=== PATIENT | male | born 1990 | race American Indian/Alaskan Native ===

== ENCOUNTER 2016-06-22 13:50 | Emergency (ER) | payer SELFPAY ==
[2016-06-22] MEDS ORDERED: TYLENOL PO ONE (14:18)
[2016-06-22 14:20] VITALS: BP 100/66
--- NOTE | 2016-06-22 14:20 | Emergency Department Report ---
Chief Complaint: Syncope Stated Complaint: PASSED OUT Time Seen by Provider: 06/22/16 14:16 - HPI History of Present Illness: Patient reports he had a syncope episode this am while at the [employer] witnessed by his [employer]is and bystanders. He reports feeling "sick" upon awakening this am - ROS Review of Systems: all other systems are unremarkable except for documentation in HPI - Exam Vital Signs: Vital Signs 06/22/16 13:55 Temperature 102.5 F H Pulse Rate 118 H Respiratory 22 Rate Blood Pressure 159/70 O2 Sat by Pulse 99 Oximetry Physical Exam: Gen: well developed and nourished, NAD Cardio: heart sounds present S1-S2, no ectopy, murmur or gallops Resp: even and unlabored, lungs CTA zachary, no wheezing, rales or rhonchi MSE screening note: Focused history and physical exam performed. Due to findings the following was ordered: analgesic, orthostatic vital signs, laboratory and radiology studies ordered ED Disposition for MSE Condition: Stable
[2016-06-22 15:07] LABS: Creatine Kinase MB < 1.0 ng/mL (0.0-4.0)
[2016-06-22 15:08] LABS: Alanine Aminotransferase 10 units/L (7-56); Albumin 4.1 g/dL (3.9-5); Albumin/Globulin Ratio 1.1 %; Alkaline Phosphatase 62 units/L (35-129); Anion Gap 18 mmol/L; BUN/Creatinine Ratio 8.33; Bilirubin,Total 0.9 mg/dL (0.1-1.2); Blood Urea Nitrogen 10 mg/dL (9-20); Carbon Dioxide 25 mmol/L (22-30); Chloride 99.3 mmol/L (98-107); Creatine Kinase 297 units/L (55-170); Glucose 137 mg/dL (75-100); Magnesium 1.5 mg/dL (1.7-2.3); Potassium 3.6 mmol/L (3.6-5.0); Sodium 139 mmol/L (137-145); Total Protein 7.7 g/dL (6.3-8.2)
[2016-06-22 15:33] LABS: Basophils % (Auto) 0.3 % (0.0-1.8); Eosinophils % (Auto) 0.1 % (0.0-4.3); Hematocrit 42.6 % (35.5-45.6); Hemoglobin 14.3 gm/dl (11.8-15.2); Mean Corpuscular HGB Conc 34 % (32-34); Mean Corpuscular Hemoglobin 30 pg (28-32); Mean Corpuscular Volume 90 fl (84-94); Platelet Count 224 K/mm3 (140-440); Red Blood Count 4.71 M/mm3 (3.65-5.03); Red Cell Distribution Width 12.9 % (13.2-15.2); White Blood Count 8.2 K/mm3 (4.5-11.0)
--- NOTE | 2016-06-23 19:49 | ED Elopement Review ---
ED Pt Elopement review - Results review Lab results: Laboratory Tests 06/22/16 06/22/16 14:33 14:33 WBC 8.2 RBC 4.71 Hgb 14.3 Hct 42.6 MCV 90 MCH 30 MCHC 34 RDW 12.9 L Plt Count 224 Lymph % (Auto) 4.3 L [place] % (Auto) 11.4 H Eos % (Auto) 0.1 Baso % (Auto) 0.3 Lymph # 0.3 L [place] # 0.9 H Eos # 0.0 Baso # 0.0 Seg Neutrophils % 83.9 H Seg Neutrophils # 6.9 Sodium 139 Potassium 3.6 Chloride 99.3 Carbon Dioxide 25 Anion Gap 18 BUN 10 Creatinine 1.2 Estimated GFR > 60 BUN/Creatinine Ratio 8.33 Glucose 137 H Calcium 9.0 Magnesium 1.5 L Total Bilirubin 0.9 AST 13 ALT 10 Alkaline Phosphatase 62 Total Creatine Kinase 297 H CK-MB (CK-2) < 1.0 CK-MB (CK-2) Rel Index 0.3 Troponin T < 0.010 Total Protein 7.7 Albumin 4.1 Albumin/Globulin Ratio 1.1 - Call Back decision Pt Call Back Decision: No action required
== END 2016-06-22 21:50 | disposition left against medical advice (07) ==
LOC: ED 13:50
DX: R55 Syncope and collapse (principal); Z53.21 Procedure and treatment not carried out due to patient leaving prior to being seen by health care provider
CPT/HCPCS: 36415; 80053; 82550; 82553; 83735; 84484; 85025; 93005; 93010